=== PATIENT | female | born 1995 | race Asian ===

== ENCOUNTER 2022-04-20 10:20 | Emergency (ER) | payer BC, SELFPAY ==
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
[2022-04-20 10:31] VITALS: BP 109/72; PULSE 68; RESP 18; TEMP 36.8; O2SAT 99
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
[2022-04-20 11:31] LABS: Abs Immature Grans 0.03 10^3/uL (0.0-0.06); Absolute Basophil Count 0.03 10^3/uL (0.0-0.2); Absolute Eosinophil Count 0.05 10^3/uL (0.0-0.7); Absolute Lymphocyte Count 1.69 10^3/uL (1.2-3.4); Absolute Monocyte Count 0.45 10^3/uL (0.1-0.8); Absolute Neutrophil Count 6.38 10^3/uL (1.2-6.7); Basophils % 0.3; Eosinophils % 0.6; HCT 37.3 % (36.0-46.0); Immature Grans % 0.3; Lymphocytes % 19.6; MCH 31.6 pg (27.0-33.0); MCHC 34.9 % (32.0-36.0); MCV 91 fL (80-95); Monocytes % 5.2; Platelet Count 307 10^3/uL (130-400); RBC 4.11 10^6/uL (3.93-5.22); RDW 11.2 % (11.7-14.6); RDW-SD 37.2 fL; WBC 8.63 10^3/uL (4.4-10.8)
[2022-04-20 11:52] LABS: ALT 35 U/L (14-59); AST 29 U/L (15-37); Albumin 4.4 g/dL (3.4-5.0); Alkaline Phosphatase 56 U/L (46-116); BUN 14 mg/dL (7-18); Bilirubin, Total 0.7 mg/dL (0.2-1.0); CREATININE 0.8 mg/dL (0.55-1.02); Calcium 9.1 mg/dL (8.5-10.1); Chloride 104 mmol/L (98-107); Glucose 88 mg/dL (74-106); Potassium 3.6 mmol/L (3.5-5.1); Sodium 140 mmol/L (136-145); Total Protein 8.1 g/dL (6.4-8.2)
[2022-04-20] MEDS: Lactated Ringers 1,000 ML 1000 ML IV (12:18)
--- NOTE | 2022-04-20 14:30 | NUR.NOTE ---
Mental Health worker in room with patient.
[2022-04-20 14:49] VITALS: BP 107/72; PULSE 68; TEMP 37.1; O2SAT 100
[2022-04-20 14:58] VITALS: BP 126/80; PULSE 75; RESP 18; TEMP 37; O2SAT 99
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
== END 2022-04-20 15:17 | disposition home or self-care (01) ==
PROVIDERS: Emergency Provider Physician Assistant; PCP Emergency Medicine
DX: S09.8XXA Other specified injuries of head, initial encounter (principal); R51.9 Headache, unspecified; R41.0 Disorientation, unspecified; R07.89 Other chest pain; V49.9XXA Car occupant (driver) (passenger) injured in unspecified traffic accident, initial encounter; S70.01XA Contusion of right hip, initial encounter; F32.A Depression, unspecified
CPT/HCPCS: 36415; 74177; 80053; 96360; 99285; 70450; 71260; 72125; 83735; 85025; 99284